=== PATIENT | female | born 1990 | race Caucasian/White ===

== ENCOUNTER 2025-05-06 11:37 | Emergency (ER) | payer OTHER, SELFPAY ==
--- NOTE | ~2025-05-06 | CT_ITS ---
EXAMINATION: CT BRAIN W/O DATE: 05/06/2025 13:44 INDICATION: Paresthesias. TECHNIQUE: Computed tomography (CT) of the head was performed without intravenous contrast. The dose- length product was 529.67 mGy-cm. COMPARISON: No prior studies for comparison. FINDINGS: Normal brain parenchymal volume for age. Normal albrecht-white differentiation. No acute intrac ranial hemorrhage, infarction, mass or mass effect. No ventriculomegaly or midline shift. Midline sagittal images demonstrate a normal corpus callosum, c raniovertebral junction and sella turcica. Basilar cisterns are patent. Paranasal sinuses and mastoids are pneumatized. No depressed skull fractures. IMPRESSION: 1. No acute intracranial abnormality. Reviewed, dictated and finalized at location A.
--- NOTE | ~2025-05-06 | XR_ITS ---
EXAMINATION: XR chest 2V 05/06/2025 13:55 INDICATION: Hypertension. Tingling in hands. PROCEDURE: 2 view chest COMPARISON: No prior studies for comparison. FINDINGS: The lungs are clear. The cardiomediastinal silhouette is within normal limits. There are no pleural effusions. There is no pneumothorax suspected. IMPRESSION: 1: NO ACUTE CARDIOPULMONARY DISEASE. Reviewed, dictated and finalized at location A.
[2025-05-06 11:39] VITALS: BP 145/96; PULSE 77; RESP 18; TEMP 36.8; O2SAT 100
--- NOTE | 2025-05-06 13:22 | ED.RECABL ---
HPI - Recheck/Abnormal Lab/Rx General Chief Complaint: Recheck/Abnormal Lab/Rx Stated Complaint: High BP-193/131 Time Seen by Provider: 05/06/25 13:22 Focused HPI: This is a 34 year old female that presents to the ER for tingling in her hands bilaterally. Ongoing over the last couple of days. Also reports pain in her left upper arm. Reports her blood pressures have been high the last couple of days as well. Reports no history of hypertension. Reports headaches. Denies chest pain, shortness of breath. GENERAL: Well-appearing, well-nourished, and in no acute distress. HEAD: Normocephalic, atraumatic. CHEST: Clear to auscultation. ?No respiratory distress. HEART: Regular rate and rhythm.? NEURO: ?Alert and oriented x3. Patient screened in triage and initial orders placed.? ?Additional care and disposition to be based upon?diagnostic testing and treatment. Related Data Allergies Allergy/AdvReac Type Severity Reaction Status Date / Time No Known Allergies Allergy Verified 05/06/25 11:38 Course Vital Signs Vital signs: Vital Signs Temperature 98.3 F 05/06/25 11:39 Pulse Rate 77 05/06/25 11:39 Respiratory Rate 18 05/06/25 11:39 Blood Pressure 145/96 H 05/06/25 11:39 Pulse Oximetry 100 05/06/25 11:39 Oxygen Delivery Room Air 05/06/25 11:39 Temperature 98.3 F 05/06/25 11:39 Pulse Rate 77 05/06/25 11:39 Respiratory Rate 18 05/06/25 11:39 Blood Pressure 145/96 H 05/06/25 11:39 Pulse Oximetry 100 05/06/25 11:39 Oxygen Delivery Room Air 05/06/25 11:39 Discharge Plan Discharge Patient Language: Pakistani Follow-up/Referrals: PHYSICIAN,MARINE RESOURCE ECONOMIST [Primary Care Provider] -
--- NOTE | 2025-05-06 13:23 | ECG_ITS ---
Test Date: 2025-05-06 14:19:59 Measurements Intervals [place] Rate: 66 P: 42 ID: [id number] QRS: 29 QRSD: 97 T: 26 QT: 417 QTc: 439 Interpretive Statements SINUS RHYTHM No previous ECG available for comparison Electronically Signed On 05-07-2025 16:01:20 CDT by Jose Luis Henry M.D.
--- NOTE | 2025-05-06 13:58 | ED_ITS ---
HPI - Recheck/Abnormal Lab/Rx General Chief Complaint: Recheck/Abnormal Lab/Rx Stated Complaint: High BP-193/131 Time Seen by Provider: 05/06/25 13:22 History of Present Illness HPI narrative: Pt checked BP at work yesterday and it was elevated. Pt went home and checked again and it was 180/110'2. Today pt checked again and it was still elevated and patient noticed tingling in both of her her fingertips. Pt denies CP or SOB. Pt had some brief sharp pain in left arm. Pt denies weakness on one side or STEPHEN. Related Data Allergies Allergy/AdvReac Type Severity Reaction Status Date / Time No Known Allergies Allergy Verified 05/06/25 11:38 Review of Systems 2 Review of Systems: All systems reviewed & are unremarkable except as noted in HPI and below Exam 2 Const: General: healthy appearing and no acute distress Nutritional Appearance: well nourished Orientation/consciousness: patient oriented x3 Limitations: no limitations HENMT: Head: normal to inspection Mouth: Yes Normal oral and palatal mucosa present Eyes: Pupils: Equal, round and reactive pupils present EOM: EOMs intact bilaterally Neck: Neck: normal visual inspection Chest: Chest palpation & inspection: normal inspection of the chest Resp: Effort & Inspection: normal respiratory effort Auscultation: clear to auscultation bilaterally Cardio: Rate: regular rate Rhythm: regular rhythm GI: GI Palp: Yes Soft to palpation and Yes Tenderness to palpation present (GI) Auscultation: normal bowel sounds Skin: General skin exam: normal color Rashes: no rashes Neuro: General: patient oriented x3, moves all extremities and no focal motor deficits Cranial nerves: Yes Nystagmus not present Speech: normal speech Extrem: General: normal to inspection and no clubbing, cyanosis or edema Psych: Mental Status: mental status grossly normal Affect: normal affect Attitude: cooperative Course Vital Signs Vital signs: Vital Signs Temperature 98.3 F 05/06/25 11:39 Pulse Rate 77 05/06/25 11:39 Respiratory Rate 18 05/06/25 11:39 Blood Pressure 145/96 H 05/06/25 11:39 Pulse Oximetry 100 05/06/25 11:39 Oxygen Delivery Room Air 05/06/25 11:39 Temperature 97.9 F 05/06/25 14:45 Pulse Rate 76 05/06/25 14:45 Respiratory Rate 18 05/06/25 14:49 Blood Pressure 117/81 05/06/25 14:45 Pulse Oximetry 100 05/06/25 14:45 Oxygen Delivery Room Air 05/06/25 14:45 MDM - Recheck/Abnormal Lab/Rx MDM Narrative Medical decision making narrative: Pt has some BP elevation first noted last night. today bp more elevated and noted tingling to both side fingers. likely anxiety. will check ekg and ct and labs for signs of end organ damage but doubt given symptoms and age. labs and ct normal ekg normal ct head neg. BP 117/81 now. Lab Data 05/06/25 14:26 05/06/25 14:26 Labs: Lab Results 05/06/25 Range/Units 14:26 WBC 11.0 H (4.5-10.0) K/mm3 RBC 4.93 (4.2-5.4) M/mm3 Hgb 14.7 (12.0-15.0) g/dL Hct 43.2 (37.0-47.0) % MCV 87.6 (80-100) fl MCH 29.8 (26-34) pg MCHC 34.0 (32-36) g/dl RDW 12.6 (11.5-14.5) % Plt Count 359 (150-375) k/mm3 MPV 9.2 (7.4-10.4) fl Immature Gran % (Auto) 0.2 (0-0.5) % Neut % (Auto) 66.3 (45.5-73.1) % Lymph % (Auto) 24.9 (18.3-44.2) % [place] % (Auto) 7.0 (2.6-8.5) % Eos % (Auto) 1.1 (0-4.4) % Baso % (Auto) 0.5 (0.2-1.2) % Lymph # (Auto) 2.74 (0.9-3.2) K/mm3 [place] # (Auto) 0.8 H (0.1-0.6) K/mm3 Eos # (Auto) 0.1 (0-0.3) K/mm3 Baso # (Auto) 0.1 (0.0-0.1) K/mm3 Abs Immat Gran (auto) 0.02 (0.00-0.031) K/mm3 Absolute Neuts (auto) 7.3 H (1.3-6.7) K/mm3 Absolute Nucleated RBC 0.000 (0.0-0.012) K/mm3 Nucleated RBC % 0.0 (0.0-0.2) % Sodium 140 (137-145) mmol/L Potassium 3.8 (3.4-5.0) mmol/L Chloride 105 (98-107) mmol/L Carbon Dioxide 25 (22-30) mmol/L Anion Gap 10 (4-12) mmol/L BUN 6 L (7-17) mg/dL Creatinine 0.63 L (0.7-1.0) mg/dL Estim Creat Clear Calc 118 ml/min Estimated GFR > 60 (59 - ) Glucose 91 (65-110) mg/dL Calcium 9.2 (8.4-10.2) mg/dL Total Bilirubin 0.7 (0.2-1.3) mg/dL AST 54 H (14-36) U/L ALT 53 H (6-35) U/L Alkaline Phosphatase 96 (38-126) U/L Total Protein 8.4 H (6.3-8.2) g/dL Albumin 4.6 (3.5-5.1) g/dL Discharge Plan Discharge Clinical Impression: Tingling Patient Disposition: Home Condition: Improved Instructions: Antibiotic Form, Hypertension (ED) Patient Language: Japanese Follow-up/Referrals: PHYSICIAN,NIGHT SHIFT SUPERVISOR [Primary Care Provider] -
--- OUTSIDE RECORDS SUMMARY | 2025-05-06 14:16 | XMS_ITS | Continuity of Care Document ---
Author Organization [facility] Address [address] [place] [address] Phone Care Team Providers Care [employer] Machine Feeder Name Role Phone Management, Case Unavailable Unavailable Unavailable Unavailable Unavailable Medications Medication Instructions Dosage Effective Dates (start - stop) Status Comments Vitamin 27 mg-0.8 mg Tab take 1 tablet by oral route every day - Active Loestrin 24 Fe 1 mg-20 mcg (24)/75 mg (4) Tab take 1 tablet by ORAL route every day - Active Cipro 250 mg Tab take 1 tablet (250MG) by ORAL route every 12 hours for 3 days 250 MG - Active Stop taking this medication if you develop a rash Procedures Procedure Date CARE, AT-RISK ENHANCED SERVICE PACKAGE (INCLUDES [id number]) care, at-risk assessment care, at-risk enhanced service; antepartum management MENTAL HEALTH ASSESSMENT, BY NON-PHYSICI AN OFFICE O/P EST 5 MIN OFFICE/OUTPATIENT VISIT, EST Wet maria, including preparations of va ginal, cervical or skin specimens OFFICE/OUTPATIENT VISIT, EST Wet maria, including preparations of va ginal, cervical or skin specimens OFFICE/OUTPATIENT VISIT, EST OFFICE OUTPT EST 25 MIN COLLECTION OF VENOUS BLOOD BY TOMMYUNCTKaitlyn ALVARADO Advance Directives Directive Yes / No Effective Date File Name No Information Encounters Encounter Description Practice Location Reason(s) For Visit Diagnoses Date Provider Providers [facility] [address], [place], [place], [id number] , tel:[phone] [facility] Supervision of normal first 1 Management Case. [address], [place], [place], [id number], . tel:[phone] [facility], [address], [place], [place], [id number] , tel: [phone] [facility] [place] PN Class (chief complaint) Supervision of normal first 1 Management Case. [address], [place], [place], [id number], [place]. tel:[phone] OFFICE O/P EST 5 MIN [facility], [address], [place], [place], [id number] , [place] tel: [phone] [facility] test (chief complaint) examination or test, positive result 1 No Information OFFICE/OUTPA TIENT VISIT, EST [facility], [address], [place], [place], [id number] , [place] tel: [phone] [facility] [place] Discussed menstrual cycle change (chief complaint) Other general counseling and advice on contraceptive management 1 No Information OFFICE/OUTPA TIENT VISIT, EST [facility], [address], [place], [place], [address] , [place] tel: [phone] [facility] suspected UTI (chief complaint) control (chief complaint) DysuriaOther general counseling and advice on contraceptive management 0 No Information OFFICE/OUTPA TIENT VISIT, EST [facility], [address], [place], [place], [address] , [place] tel: [phone] [facility] [place] vaginal discharge (chief complaint) Leukorrhea, not specified as infective 9 No Information OFFICE OUTPT EST 25 MIN [facility], [address], [place], [place], [address] , tel: [phone] [facility] annual visit (chief complaint) Routine gynecological examinationAbsence of menstruationScreen ing examination for venereal disease 9 No Information Family History Family Member Type Diagnosis Age At Onset No Information Payers Payer name Insurance type Covered green party ID Authorlca tiricci(s) No Information Social History Type Description Quantity Date Captured Comments Sex Female Smoking Status No Information Sexual Orientation Straight or heterosexual Chief Complaint And Reason For Visit No Information Reason For Referral Reason For Referral No Information Plan Of Treatment Date Type Action Status Future Order: Lab Order Wet Prep (Wet Prep), Appointment on: Ordered Future Order: Lab Order Wet Prep (Wet Prep), Appointment on: Ordered History Of Present Illness Encounter Date Complaint History Of Prese nt Illness No Information Functional Status Date Functional Assessmen t No Information Instructions Date Instruction Additional Infor mation No Information Assessments Type Assessment Date No Information Patient Care Teams Name Effective Dates (start - stop) Status Members No Information
--- OUTSIDE RECORDS SUMMARY | 2025-05-06 14:16 | XMS_ITS | Data Portability ---
Author Organization [facility] [place] [facility] Address [address] [place] [address] Care Team Providers Care Intake Rn Name Role Phone JULIA MONSON Primary Care Provider Assessment Encounter Date Assessment Date Assessment LastModified by Organization Details LastModified Time 03/19/2022 03/19/2022 AMMY Faria Not available 03/19/2022 14:26:08 Plan of Treatment Reminders Order Date Submit Date Provider Last Modified By Organization Details Last Modified Time Details Appointments ANY 2024 02:00P Mazin ANDERSON PA-C Not available Not available Not available Lab test, urine 2022 023 In-Office Order, Internal Use Only DO Not Attach Compendium DO Not Attach Compendium, Do Not Delete/merge, [id number] 12/25/2022 15:28:35 test, urine 2021 022 MAGUE In-Office Order, Internal Use Only DO Not Attach Compendium DO Not Attach Compendium, Do Not Delete/merge, [id number] 10/11/2022 15:21:22 test, urine 2021 022 In-Office Order, Internal Use Only DO Not Attach Compendium DO Not Attach Compendium, Do Not Delete/merge, [id number] 07/12/2022 15:09:13 test, urine 2021 022 [email or web address] In-Office Order, Internal Use Only DO Not Attach Compendium DO Not Attach Compendium, Do Not Delete/merge, [id number] 04/13/2022 16:03:01 Referral None recorded. Procedures None recorded. Surgeries None recorded. Imaging None recorded. Medication Orders medroxypr ogesteron e 150 mg/mL intramusc ular suspensio n 2022 023 Not available 12/25/2022 15:28:35 medroxypr ogesteron e 150 mg/mL intramusc ular suspensio n 2021 022 [email or web address] Not available 10/11/2022 15:22:00 medroxypr ogesteron e 150 mg/mL intramusc ular suspensio n 2021 022 [id number], [address] [place], [place], [phone], 07/12/2022 15:09:13 medroxypr ogesteron e 150 mg/mL intramusc ular suspensio n 2021 022 [email or web address] Not available 04/13/2022 16:03:01 Patient TargetsNo targets recorded. Patient Instructions Encounter Date Encounter Id Patient Instructions Last Modified By Organization Details Last Modified Time 03/19/2022 [id number] A healthy lifestyle: care instructions Not available 03/19/2022 15:04:39 Reason for Referral None Reported. Results Created Date Observation Date Name Description Value Unit Range Abnormal Flag Note LastModifiedBy Organization Detail LastModifiedTime 04/13/2004/13/2022 pregn april test, urine HCG negati ve Not Available In-Office Order Internal Use Only DO Not Attach Compendium DO Not Attach Compendium, Do Not Delete/merge, [id number] 04/13/2022 14:05:19 07/12/20 22 07/12/2022 pregn april test, urine HCG negati ve Not Available In-Office Order Internal Use Only DO Not Attach Compendium DO Not Attach Compendium, Do Not Delete/merge, [id number] 07/12/2022 14:42:40 10/11/20 22 10/11/2022 pregn april test, urine HCG negati ve Not Available In-Office Order Internal Use Only DO Not Attach Compendium DO Not Attach Compendium, Do Not Delete/merge, [id number] 10/11/2022 14:42:51 12/26/19 23 12/25/2022 pregn april test, urine HCG negati ve Not Available In-Office Order Internal Use Only DO Not Attach Compendium DO Not Attach Compendium, Do Not Delete/merge, [id number] 12/25/2022 14:55:32 10/01/20 22 10/01/2022 imagi ng/di agnos tic resul t No observ ation record ed. [facility] [address] [place], [address], 10/01/2022 11:07:59 Result Notes None recorded. Problems Name Problem SNOMED Code Status Onset Date Resolution Date Notes Provider Name and Address Organization Details Recorded Time Active or passive immuniza tion Active 2016 Not Available [facility] 3 17:53:04 Urinary tract infectio us disease 28557603 Completed 201604/27/2020 ROBERTO IRAHETA Attn: Accounting ,[address] [place], [address] , [facility] 0 10:29:51 Adult health examinat ion Active 2016 Not Available [facility] 3 17:53:04 Chlamydi al infectio n 621230450 Active 2016 Not Available [facility] 3 17:53:04 Fracture of phalanx of foot 17591843 Active 2019 Xray in the ER 0 showed nondispl aced fracture of the tuft of the third distal phalanx Not Available [facility] 3 17:53:04 Notes:Some problems listed i n Documents: #[id number], #[id number] could not be added to this patient's chart. Please review these documents and add these problems to the patient's chart manually as needed. Problem Notes None recorded. Medical Equipment None Reported. Allergies No known drug allergies Medications Name Sig Start Date Stop Date Status Note LastModified by Organization Details LastModified Time ibuprofen 800 mg tablet Take by oral route for 10 days. 03/19 completed Not Available Not Available Not Available hydrocodone 5 mg-acetamin ophen 325 mg tablet 12/20 completed Not Available Not Available Not Available prednisone 20 mg tablet 12/20 completed Not Available Not Available Not Available sulfamethox azole 800 mg-trimetho prim 160 mg tablet TAKE 1 TABLET BY MOUTH TWICE DAILY FOR 10 DAYS 11/22 completed Not Available Not Available Not Available amoxicillin 500 mg tablet TAKE 1 TABLET BY MOUTH THREE TIMES DAILY UNTIL ALL TAKEN 03/19 completed Not Available Not Available Not Available nitrofurant oin macrocrysta l 100 mg capsule Take 1 capsule twice a day by oral route for 5 days. 12/07 completed Not Available Not Available Not Available ibuprofen 600 mg tablet 12/20 completed Not Available Not Available Not Available levofloxaci n 500 mg tablet 12/07 completed Not Available Not Available Not Available ondansetron 4 mg disintegrat ing tablet 12/07 completed Not Available Not Available Not Available medroxyprog esterone 150 mg/mL intramuscul ar suspension Inject 1 ml (150 mg) intramusc ularly every 3 months active Not Available Not Available No t Available amoxicillin 875 mg-potassiu m clavulanate 125 mg tablet TAKE 1 TABLET BY MOUTH EVERY 12 HOURS FOR 10 DAYS 03/19 completed Not Available Not Available Not Available azithromyci n 500 mg tablet Take 2 tablets by oral route for 1 day. 12/07 completed Not Available Not Available Not Available nitrofurant oin monohydrate /macrocryst als 100 mg capsule TAKE 1 CAPSULE BY MOUTH TWICE DAILY 12/25 completed Not Available Not Available Not Available calcium 600 mg (as carbonate)- vitamin D3 10 mcg (400 unit) tablet TAKE 1 TABLET BY MOUTH TWICE DAILY DIRECTED 03/19 completed Not Available Not Available Not Available Vitals Date Recorded Body height Body mass index (BMI) Body weight Heart rate Body temperature Oxygen saturation Oxygen saturation in Arterial blood by Pulse oximetry Systolic And Diastolic Provider Name and Address Organization Details Last Updated DateTime 2 170.18 cm 26.2 kg/m2 98428.7 3 g 81 /min 98.4 [degF] 98 % 98 % 108/72 mm[Hg] Padmini Wall [place] - [place] 2 10:41:07 Social History Question Answer Notes LastModified by Organizat ion Details LastModified Time Tobacco Smoking Status Never Smoker Anne Sepulveda MA [facility], [place] - [facility] 11/13/2016 10:09:00 Do You Have An Advance Directive? No Information n ot available 12/20/2020 What Is Your Level Of Caffeine Consumption? Heavy Information not available 11/13/2016 How Much Tobacco Do You Chew? None Information not available 11/13/2016 In The 14 Days Before Symptom Onset, Have You Had Close Contact With A Laboratory-confirm ed COVID-19 While That Case Was Ill? No Information n ot available 12/20/2020 In The 14 Days Before Symptom Onset, Have You Had Close Contact With A Person Who Is Under Investigation For COVID-19 While That Person Was Ill? No Information not available 12/20/2020 Have You Been To An Area Known To Be High Risk For COVID-19? No Information not available 12/20/2020 What Type Of Diet Are You Following? REGULAR Information n ot available 11/13/2016 Which Illicit Or Recreational Drugs Have You Used? None Information not available 11/13/2016 Education 12 Information no t available 11/13/2016 Swimming/diving No Informati on not available 11/13/2016 Hard Of Hearing Or Deaf In One Or Both Ears? No Information not available 11/13/2016 Legally Blind In One Or Both Eyes? No Information no t available 11/13/2016 Do You Have A High School Diploma Or Higher Education? Yes Information no t available 12/20/2020 Do You Sometimes Have To Miss Your Medical Appointments Due To Difficult Getting Transportation? No Information not available 12/20/2020 Do You Feel Unfairly Treated Due To Things Such As Race, Age, Gender, Disability Or Some Other Reason? No Information not available 12/20/2020 Do You Feel Physically And Emotionally Safe While Living At Home? Yes Information not available 12/20/2020 Do You Feel Physically And Emotionally Safe In Your Neighborhood Or Other Public Places? Yes Information not available 12/20/2020 Marital Status Single Informatio n not available 11/13/2016 What Was The Date Of Your Most Recent Tobacco Screening? 03/19/2022 Information not available 03/19/2022 How Many Children Do You Have? 2 Information not available 11/13/2016 Do You Use Protection During Sex? Always Information not available 11/13/2016 What Is Your Relationship Status? Single Information not available 12/20/2020 Seat Belts Used Routinely Yes Information not available 11/13/2016 Are You Sexually Active? Yes Information not available 11/13/2016 Smoke Alarm In Home Yes Information not available 11/13/2016 Do You Have Smoke And Carbon Monoxide Detectors In Your Home? Yes Information not available 03/19/2022 Are You Passively Exposed To Smoke? No Information no t available 11/13/2016 General Stress Level Medium Information not available 11/13/2016 Do You Use Sunscreen Routinely? Yes Information not available 11/13/2016 On What Date Was Tobacco Cessation Counseling Provided? 12/20/2020 Information not available 12/20/2020 Sex: Female Functional Status Question Answer Note LastModified by [employer] ion Details LastModified Time Do you use any illicit or recreational drugs? No Information not available 12/20/2020 What is your level of alcohol consumption? None Information not available 11/13/2016 Are you currently employed? 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 Occasional Information not available 11/13/2016 Mental Status None recorded. Family History Relationship Description Onset Age of this Age Resolved Age Notes LastModified by Organization Details LastModified Time Brother Attention deficit hyperactivit y disorder [email or web address] Not available 11/13 10:08:54 Notes:Pt states mom has leak y heart valve Medical History Condition Response Coronary Artery Disease N Other N Atrial Fibrillation N High Blood Pressure N Kidney or Bladder Problems N Thyroid Problems N GI Problems N Depression N COPD N Blood Clots N Skin Problems N Anemia N Heart Attack (AK) N Anxiety Disorder N Diabetes N Muscle, Joint, or Bone Problems N Seizures/Epilepsy N Acid Reflux (GERD) N Cancer N Stroke N Asthma N Allergies N High Cholesterol N Hepatitis N Liver Disease N Headaches N Heart Failure N Osteoporosis N Gynecological History Statement/Question Response Flow Moderate Date of LMP 04/13/2020 Menses Monthly Y Duration of Flow (days) 4 Age at Menarche 12 Current Control Method None Age at First Child 20 LMP Approximate Obstetrics History GPAL:G 2 P 2 0 0 2 Type Value Full Term 2 Living 2 Total 2 Immunizations Vaccine Type Date Status Note Provider Nam e and Address Organization Details Recorded Time COVID-19, mRNA, LNP-S, PF, 100 mcg/0.5mL dose or 50 mcg/0.25mL dose 1 completed Not Available [facility] 07/05/2023 04:58:35 COVID-19, mRNA, LNP-S, PF, 100 mcg/0.5mL dose or 50 mcg/0.25mL dose 1 completed Not Available [facility] 07/05/2023 04:58:35 COVID-19, mRNA, LNP-S, PF, 100 mcg/0.5mL dose or 50 mcg/0.25mL dose 1 completed Not Available [facility] 07/05/2023 04:58:35 Tdap 2 completed Not Available [facility] 07/05/2023 04:58:35 Influenza, split virus, quadrivalent, preservative 7 completed Not Available [facility] 10/31/2019 02:46:03 Past Encounters Encounter ID Performer Location Encounter Start Date Encounter Closed Date Diagnosis/Indication Diagnosis SNOMED-CT Code Diagnosis ICD10 Code Diagnosis Note [id number] Lina Perez MD [facility] (Adult Med) [facility] [place] [address] 11/13/2016 09:41:51 11/13/2016 14:12:58 Active or passive immunization 814404929 Z23 Venereal d isease screening 547243047 Z11.3 Adult heal th examination 968860375 Z00.01 26YO female here to establish care. No compalints today. States that her last pap smear was in 2013 Urinary tr act infectious disease 15443492 N39.0 Advised to increase water intakeTake abx as prescribeA zo OTCStay away from sugary drinks - no sodaOnly water [id number] MD Scarlett Campbell (Adult Med) [address] [place] [phone] 11/29/2016 09:51:52 11/29/2016 15:29:01 Chlamydial infection 692208498 A74.9 Test to cure today Urinary tr act infectious disease 52800858 N39.0 Advised to increase water intakeStay away from sugary drinks - no soda Only waterWIll send urine out for culture [id number] ROBERTO IRAHETA (Adult Med) [address] [place] [phone] 12/07/2019 11:53:55 12/08/2019 08:40:47 At increased risk of sexually transmitted infection 229301661 Z20.2 Pt symptomati c with vaginal discharge and malodorous urine today after possible recent exposure to STDs.- Dipstick UA showed presence of leukocytes . No nitrites present. Presence of protein/bl ood likely due to pt's menstruati on. - Discussed options of ELIZABETH screen for chlamydia, gonorrhea, and trich vag vs. nuswab vs. pelvic exam vs. blood work for HIV/syphil is/hepatit is.- Pt states she is on her menstrual cycle and would like to defer swab/pelvi c exam and would like to defer bloodwork. - Will send ELIZABETH for further screening of STDs.- Pt advised she can return to the office for bloodwork/ nuswab/pel maureen exam if she would like. Malodorous urine 4749320 01 R82.998 Pt symptomati c with vaginal discharge and malodorous urine today after possible recent exposure to STDs.- Dipstick UA showed presence of leukocytes . No nitrites present. Presence of protein/bl ood likely due to pt's menstruati on.- Will send urine culture and update pt if results indicate infection. - Pt advised to call office if she develops fevers, chills, urinary frequency/ urgency, dysuria, to be treated with antibiotic s for UTI. [id number] ROBERTO IRAHETA (Adult Med) [address] [place] [phone] 04/27/2020 09:45:51 04/28/2020 13:16:37 Contraception care 288698372 Z30.40 Presents today for contracept otoniel Serg used Depo in 2009 without side effects and no menses. She stopped contracept sonny for 10 years and had 2 children. She is now ready to start contracept sonny again. She eventually would like to have more children but not in the near future.The pt has a normal physical examUrine Hcg in clinic was negativeDi scussed with the pt that depo can take from 3 months-1 year after stopping it to get again. She states understand ing.- Ordered MedroxyPro gesteron 150mg/mL- Ordered Calcium with Vit D due to possible osteopenia with Depo injections - Follow in 3 months for continued depo shot- Follow up with me in 1 year or sooner if having symptoms Depression screening 171 004457 Z13.31 PHQ 11/22 was negative in office today (0 out of 27)- Will continue to monitor [id number] ROBERTO IRAHETA (Adult Med) [address] [place] [phone] 12/20/2020 10:01:52 12/22/2020 11:00:16 Contraception care 551626004 Z30.40 Presents to restart Depo shot todayTerrell carbajal started Depo in 2009 and continued injections for one year before discontinu ing for ~10 yearsResta rted Depo in 04/2020 with last injection in 07/2020, but did not keep up as she became busy with work and familyTole rated Depo well in the past and reports very light to no menses with DepoPatien t and her plan to have more children next year - She understand s that it may take over a year to conceive once starting Depo and would still like to proceed with injections todayNegat otoniel urine hCG in the office today- Discussed risks of hormonal control, including menstrual bleeding or no bleeding, weight changes, breast tenderness , mood changes, and bone loss- Ordered and administer ed Depo injection today (12/20/2020) - Provided informatio n regarding the Depo shot- Provided Depo calendar to determine when to return to the office for her next injection- Prescribed calcium/vi tamin D supplement s to prevent bone loss [id number] ROBERTO IRAHETA (Adult Med) [address] [place] [phone] 11/23/2021 14:53:06 11/24/2021 13:13:37 Contraception care 559708614 Z30.40 Presents to restart Depo shot todayTerrell carbajal started Depo in 2009 and continued injections for one year before discontinu ing for ~10 yearsResta rted Depo in 04/2020 with last injection in 12/2020, but did not keep up as she became busy with work and familyTole rated Depo well in the past and reports very light to no menses with DepoPatien t and her plan to have more children next year - She understand s that it may take over a year to conceive once starting Depo and would still like to proceed with injections todayNegat otoniel urine hCG in the office today- Discussed risks of hormonal control, including menstrual bleeding or no bleeding, weight changes, breast tenderness , mood changes, and bone loss- Ordered and administer ed Depo injection today (11/23/21)- Provided informatio n regarding the Depo shot- Provided Depo calendar to determine when to return to the office for her next injection- Prescribed calcium/vi tamin D supplement s to prevent bone loss [id number] [facility]O IRA[facility] [address] [place] [address] 03/19/2022 10:29:36 03/20/2022 11:44:40 Dog bite - wound 587372796 T14.8XXD [facility] on 03/06 for a dog bite. Wounds were cleaned, Tdap updated, d/c home with Augmentin which she is almost finished with. She says she noticed one of the wounds draining liquid last week but has not noticed it since. She says the area that was bitten is not painful to touch and has no pain with movement. She denies fever, chills, nausea, chest pain, SOB, weakness. - on PE 4-5 small circular scabs on left lower leg just superior to ankle, lesions appear to be healing. No erythema, edema, or TTP- advised patient to finish antibiotic s and follow up as needed- will get records from hospital Overweight 224431935 E66 .3 Advised decreased portion sizes, good food choices, limited eating out or fast food and eliminate soda and juice from diet. Advised physical activity daily and offered encouragem ent to continue with positive changes made so far. Depression screening 171 304660 Z13.31 PHQ 2/9 was negative in office today (0 out of 27)- Will continue to monitor [id number] MD Scarlett Kolb (Adult Med) [address] [place] [phone] 04/13/2022 14:04:07 04/17/2022 10:05:00 Contraception care 747460466 Z30.40 [id number] ROBERTO IRAHETA (Adult Med) [address] [place] [phone] 07/12/2022 14:32:46 07/13/2022 12:08:53 Contraception care 879150104 Z30.40 Presents to restart Depo shot todayBenitoti solomon started Depo in 2009 and continued injections for one year before discontinu ing for ~10 yearsResta rted Depo in 04/2020 with last injection in 12/2020, but did not keep up as she became busy with work and familyTole rated Depo well in the past and reports very light to no menses with DepoPatien t and her plan to have more children next year - She understand s that it may take over a year to conceive once starting Depo and would still like to proceed with injections todayNegat otoniel urine hCG in the office today- Discussed risks of hormonal control, including menstrual bleeding or no bleeding, weight changes, breast tenderness , mood changes, and bone loss- Ordered and administer ed Depo injection today (11/23/21)- Provided informatio n regarding the Depo shot- Provided Depo calendar to determine when to return to the office for her next injection- Prescribed calcium/vi tamin D supplement s to prevent bone loss [id number] ROBERTO IRAHETA (Adult Med) [address] [place] [phone] 10/11/2022 14:39:56 10/16/2022 13:56:02 Contraception care 729809916 Z30.40 Presents to restart Depo shot todayBenitoti solomon started Depo in 2009 and continued injections for one year before discontinu ing for ~10 yearsResta rted Depo in 04/2020 with last injection in 12/2020, but did not keep up as she became busy with work and familyTole rated Depo well in the past and reports very light to no menses with DepoPatien t and her plan to have more children next year - She understand s that it may take over a year to conceive once starting Depo and would still like to proceed with injections todayNegat otoniel urine hCG in the office today- Discussed risks of hormonal control, including menstrual bleeding or no bleeding, weight changes, breast tenderness , mood changes, and bone loss- Ordered and administer ed Depo injection today (11/23/21)- Provided informatio n regarding the Depo shot- Provided Depo calendar to determine when to return to the office for her next injection- Prescribed calcium/vi tamin D supplement s to prevent bone loss [id number] ROBERTO IRAHETA (Adult Med) [facility] [place] [address] 12/25/2022 14:31:37 12/26/2022 09:45:36 Contraception care 359260671 Z30.40 coming in today for a depo injections , will need a follow up appointmen t with julia monson pa-[facility] for any other refills on depo injection Health Concerns Section Related Observation LastModified by Organization Detai ls LastModified Time None Recorded Concern Status LastModified by Organization Details LastModified Time None Recorded Advance Directives Directive N: Payers Insurance Date Sequence Insurance Name Policy Number Policy Valladares Covered Member ID Valladares Member ID Guarantor Name 11/23/2021 1 [facility] - DOS PRIOR TO 2021 (MEDICAID REPLACEMENT - HMO) Citlaly Mata [id number] Citlaly Mata 03/26/2023 1 [facility] - DOS ON OR AFTER 21 (MEDICAID REPLACEMENT - HMO) Citlaly Mata [id number] Citlaly Mata 03/09/2021 1 [place] Citlaly Mata [id number] Citlaly Mata 03/09/2021 [facility] (MEDICAID HMO) Citlaly Mata [id number] Citlaly Mata 03/09/2021 1 [facility] (MEDICAID HMO) Citlaly Mata [id number] Citlaly Mata Notes Date Note Type Note Provider Name and Address Organization Details Recorded Time 03/19/2022 text/html ROS as noted in the HPI Citlaly is a 31y/o female presenting today for a ER follow up after a dog bite. Patient had to go to [facility] on 03/06 for a dog bite. She says they cleaned the wounds on her lower left leg around her ankle and started her on augmentin which she is almost finished with. She says she noticed one of the wounds draining liquid last week but has not noticed it since. She says the area that was bitten is not painful to touch and has no pain with movement. She denies fever, chills, nausea, chest pain, SOB, weakness. ROBERTO IRAHETA Attn: Accounting,[address] [place], [address], [facility] 03/19/2022 15:05:19 OBGyn Episode No OBEpisode recorded.
[2025-05-06 14:33] LABS: Hematocrit 43.2 % (37.0-47.0); Hemoglobin 14.7 g/dL (12.0-15.0); Immature Granulocyte Percent A 0.2 % (0-0.5); Lymphocytes Absolute Auto 2.74 K/mm3 (0.9-3.2); Mean Corpuscular HGB Conc 34.0 g/dl (32-36); Mean Corpuscular Hemoglobin 29.8 pg (26-34); Mean Corpuscular Volume 87.6 fl (80-100); Nucleated Red Blood Cells Absolute Auto 0.000 K/mm3 (0.0-0.012); Nucleated Red Blood Cells Perc 0.0 % (0.0-0.2); Platelet Count Result 359 k/mm3 (150-375); Red Blood Count 4.93 M/mm3 (4.2-5.4); White Blood Count 11.0 K/mm3 (4.5-10.0)
[2025-05-06 14:44] LABS: Alanine Aminotransferase 53 U/L (6-35); Albumin Level 4.6 g/dL (3.5-5.1); Alkaline Phosphatase 96 U/L (38-126); Anion Gap 10 mmol/L (4-12); Aspartate Amino Transferase 54 U/L (14-36); Bilirubin,Total 0.7 mg/dL (0.2-1.3); Blood Urea Nitrogen 6 mg/dL (7-17); Calcium 9.2 mg/dL (8.4-10.2); Carbon Dioxide 25 mmol/L (22-30); Chloride 105 mmol/L (98-107); Estimated CRCL calculation 118 ml/min; Estimated Glomerular Filt Rate > 60; Glucose 91 mg/dL (65-110); Potassium 3.8 mmol/L (3.4-5.0); Sodium 140 mmol/L (137-145); Total Protein 8.4 g/dL (6.3-8.2)
[2025-05-06 14:45] VITALS: BP 117/81; PULSE 76; RESP 20; TEMP 36.6; O2SAT 100
[2025-05-06 14:49] VITALS: RESP 18
== END 2025-05-06 15:33 | disposition home or self-care (01) ==
PROVIDERS: Physician Assistant; Emergency Provider Emergency Medicine
DX: R20.2 Paresthesia of skin (principal)
CPT/HCPCS: 36415; 70450; 71046; 80053; 85025; 93005; 99284